=== PATIENT | male | born 2000 | race Caucasian/White ===

== ENCOUNTER 2025-05-15 14:56 | Emergency (ER) | payer SELFPAY ==
[2025-05-15 15:07] VITALS: BP 119/61; PULSE 102; TEMP 36.7; O2SAT 99; BMI 23.7
--- NOTE | 2025-05-15 15:16 | XR_ITS ---
The [address] [address] Patient Name: ISAIAH JOE MRN: [id number] date: 2000 Sex: M Assigned Patient Location: ER Current Patient Location: ED.MAIN Accession/Order Number: [id number] Exam Date: 05/15/2025 15:22 Report Date: 05/15/2025 16:24 At the request of: ASHLEY RESENDIZ MD Procedure: XR hand LT min 3V 3 views left hand plain film COMPARISON: None HISTORY: Left hand lacerations. ACUTE FINDINGS: None DEGENERATIVE CHANGE: Unremarkable SOFT TISSUE FINDINGS: No radiodense foreign body. JOINT EFFUSION: None POSTOP CHANGES: None BONY MINERALIZATION: Adequate XR/XR hand LT min 3V IMPRESSION: No acute findings Impression dictated by: Ye Nuno M.D. 05/15/2025 4:24 PM Dictation Location: [place] [address] Electronically authenticated by: [id number] Y Date: 05/15/2025 16:24
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
[2025-05-15] MEDS: DIPHTH,PERTUSS(ACELL),TET VAC 0.5 ML SYRINGE IM (15:25)
--- OUTSIDE RECORDS SUMMARY | 2025-05-15 16:13 | XMS_ITS | Patient Health Record ---
Author Organization [facility] in [place] Address [address] [place] [address] Support Name Relationship Address Phone Sherin Osborne Emergency Contact Unknown [phone] Sherin Osborne Guarantor Unknown [phone] Reason For Referral No Information Plan Of Treatment No Information Insurance Providers Payer Name Payer Address Payer Phone Subscriber Number Group Number Insured Name Patient Relationship to Insured Coverage Start Date Coverage End Date [employer] [address] [place] [address] [id number] Walter Osborne Jr Self - patient is the insured 4
== END 2025-05-15 16:48 | disposition home or self-care (01) ==
PROVIDERS: Emergency Provider Emergency Medicine; PCP Family Medicine
DX: S61.412A Laceration without foreign body of left hand, initial encounter (principal); W25.XXXA Contact with sharp glass, initial encounter; Z23 Encounter for immunization
CPT/HCPCS: 73130; 90471; 90715; 99284